=== PATIENT | male | born 1965 | race Caucasian/White ===

== ENCOUNTER 2018-02-12 08:48 | Observation (INO) ==
[2018-02-12] MEDS ORDERED: Ipratropium/Albuterol Neb 3 ML IH ONE (08:59)
[2018-02-12] MEDS ORDERED: methylPREDNISolone 125 MG/2 ML VIAL IVP ONE (08:59)
--- NOTE | 2018-02-12 09:02 | Emergency Department Note ---
Disposition Clinical Impression: Acute exacerbation of chronic obstructive airways disease Pneumonia Qualifiers: Pneumonia type: due to unspecified organism Laterality: unspecified laterality Lung location: unspecified part of lung Qualified Code(s): J18.9 - Pneumonia, unspecified organism Disposition: Admitted As Inpatient Condition: Good General Adult HPI - General Chief complaint: ED Shortness of Breath/Dyspnea Stated complaint: Swollen all over/NILTON Time Seen by Provider: 02/12/18 08:55 Source: patient Limitations: no limitations Nursing Notes Reviewed: Yes Vital Signs Reviewed: Yes - History of Present Illness HPI Narrative: 52-year-old male presents emergency department with concern for shortness of breath, cough, sputum production, swelling all over. Patient states that he has extensive history of COPD. Reports that he was recently started on antibiotics as well as steroids. Reports that he has not gotten any better. He source of breath was to the point where they have prescribed him nebulized treatments at home with a breathing machine. He is not currently on oxygen at home. Patient denies any fevers. He denies any chest pain, pressure, tightness. Pain Scale: 8 - Related Data Home Medications Medication Instructions Recorded Confirmed Albuterol Sulfate [Ventolin Hfa] 2 puff IH Q4H PRN 02/12/18 02/12/18 Buprenorphine HCl [Subutex] 2 mg SL 02/12/18 Buprenorphine HCl [Subutex] 2 mg SL 02/12/18 Ipratropium/Albuterol Sulfate 1 vial IH Q4H PRN 02/12/18 02/12/18 [Iprat-Albut 0.5-3(2.5) mg/3 ml] levoFLOXacin [Levofloxacin] 750 mg PO DAILY 02/12/18 02/12/18 predniSONE [PredniSONE] 40 mg PO DAILY 02/12/18 02/12/18 Allergies Allergy/AdvReac Type Severity Reaction Status Date / Time No Known Allergies Allergy Verified 02/10/18 13:05 All systems ED: reviewed and negative except as stated. Review of Systems: As Per HPI Constitutional: Denies: fever Cardiovascular: Denies: chest pain Respiratory: Reports: cough, dyspnea, wheezes, sputum production Gastrointestinal: Denies: abdominal pain, nausea, vomiting Genitourinary: Denies: urgency, dysuria Musculoskeletal: Denies: back pain Past Medical History - Past Medical History Medical history: Reports: COPD Surgical history: Reports: no surgical history Psychiatric history: Reports: no psych history - Social History Smoking Status: Current every day smoker Smokeless Tobacco Status: No Alcohol use: Reports: occasionally Drug use: Reports: none Physical Exam - General Limitations: no limitations General appearance: alert - Head Head exam: normocephalic - Eye Eye exam: Present: EOMI - ENT ENT exam: normal oropharynx - Neck Neck exam: Present: trachea midline - Chest Chest inspection: Present: symmetric chest wall rise - Respiratory Respiratory exam: Present: respiratory distress, wheezes, accessory muscle use - Cardiovascular Cardiovascular exam: Present: normal rhythm, tachycardia, normal heart sounds - Abdominal Exam Abdominal exam: Present: soft, Non-Tender. Absent: distention, guarding, rebound, rigidity - Extremities Exam Extremities exam: Present: normal capillary refill. Absent: pedal edema - Back Exam Back exam: Present: full ROM - Neurological Exam Neurological exam: Present: alert, oriented X3 - Psychiatric Psychiatric exam: Present: normal affect, normal mood - Skin Skin exam: Present: warm, dry, intact, normal color. Absent: rash Course Vital Signs Temperature 98.2 F 02/12/18 08:51 Pulse Rate 101 02/12/18 08:51 Respiratory Rate 26 02/12/18 08:51 Blood Pressure 204/114 02/12/18 08:51 O2 Sat by Pulse Oximetry 92 02/12/18 08:51 Temperature 98.2 F 02/12/18 08:59 Pulse Rate 92 02/12/18 09:38 Respiratory Rate 15 02/12/18 10:25 Blood Pressure 155/103 02/12/18 10:25 O2 Sat by Pulse Oximetry 95 02/12/18 10:25 Oxygen Delivery Oxygen Delivery Room Air Medical Decision Making - [facility] Narrative Medical decision making narrative: 52-year-old help as his emergency department with concern for shortness of breath, cough, sputum production the setting of COPD. On physical exam, he had wheezes and appear to be in mild respiratory distress. Patient not requiring oxygen. We did provide breathing treatments as well as steroids. Chest x-ray did not reveal any evidence of acute cardiopulmonary abnormality per radiology. EKG did not reveal any ischemic changes. Troponin was negative. We obtained a d-dimer as patient was low risk for pulmonary embolus and this was within normal limits. Patient improved significantly after administration breathing treatments. There is concern for pneumonia at this time as patient does have a leukocytosis and is short of breath, sputum production. We did provide Levaquin IV. Patient was offered admission as he has failed outpatient management for COPD exacerbation. He agreed to stay. Patient admitted to Dr. South. He requested that we obtain CT of chest without contrast as he was concern for possibility of right lower lobe pneumonia after reviewing the chest x-ray himself. I did order this. CT of chest reveals concern for an infectious process in the lower lobes and right middle lobe. Patient hemodynamically stable at time of admission. Chest X-Ray 02/12/18 08:59 IMPRESSION: 1. Mild bibasilar opacities, favored to represent atelectasis. 2. Emphysematous changes. D/ / Steve Mirza MD / Steve Mirza MD Interpreting Provider: Steve Mirza MD Chest CT 02/12/18 10:30 IMPRESSION: Small peribronchovascular ground-glass nodular changes seen within the lower lobes and right middle lobe, concerning for an atypical multilobar infectious process. This is superimposed on chronic moderate appearing emphysema. Recommend repeat CT scan of the chest with in 2-3 months to document resolution, and allow for better evaluation of an inflammatory versus non inflammatory type pulmonary nodule. Benign left adrenal adenoma with macroscopic fat, for which no further follow-up is felt necessary. No spiculated lung mass or lymphadenopathy is identified in the chest. D/ / Lito Whitmore MD / Lito Whitmore MD Interpreting Provider: Lito Whitmore MD - Lab Data Result diagrams: 02/12/18 09:10 02/12/18 09:10 Lab Results 02/12/18 02/12/18 02/12/18 Range/Units 09:10 09:10 09:10 WBC 14.4 H (4.3-11.1) K/mcL RBC 5.07 (4.19-5.50) M/mcL Hgb 15.2 (12.9-16.9) g/dL Hct 46.5 (37.5-50.1) % MCV 91.7 (83.0-100.0) fL MCH 30.0 (28.0-33.3) pg MCHC 32.7 (31.6-35.5) g/dL RDW 13.5 (11.5-14.5) % Plt Count 252 (140-400) K/mcL MPV 10.5 (9.4-12.4) fL Immature Gran % 0.7 (0-4) % Seg Neutrophils % 57.3 % Lymphocytes % 31.9 % Monocytes % 8.4 % Eosinophils % 1.5 % Basophils % 0.2 % Neutrophils # 8.3 (1.6-8.9) K/mcL Lymphocytes # 4.6 (0.6-4.6) K/mcL Monocytes # 1.2 (0.0-1.3) K/mcL Eosinophils # 0.2 (0.0-0.6) K/mcL Basophils # 0.0 (0.0-0.2) K/mcL D-Dimer (0-500) ng/mLFEU Sodium 138 (136-145) mEq/L Potassium 3.7 (3.5-5.1) mEq/L Chloride 100 (98-107) mEq/L Carbon Dioxide 31 H (23-29) mEq/L BUN 15 (6-20) mg/dL Creatinine 0.77 (0.70-1.30) mg/dL Est GFR ( Amer) > 60 (> 60) Est GFR (Non-Af Amer) > 60 (> 60) BUN/Creatinine Ratio 19 (6-26) Glucose 100 (70-105) mg/dL Calculated Osmolality 287 (280-300) Calcium 9.2 (8.6-10.3) mg/dL Troponin I < 0.03 (< 0.04) ng/mL B-Natriuretic Peptide 37 (Less than 100) pg/mL 02/12/18 Range/Units 09:10 WBC (4.3-11.1) K/mcL RBC (4.19-5.50) M/mcL Hgb (12.9-16.9) g/dL Hct (37.5-50.1) % MCV (83.0-100.0) fL MCH (28.0-33.3) pg MCHC (31.6-35.5) g/dL RDW (11.5-14.5) % Plt Count (140-400) K/mcL MPV (9.4-12.4) fL Immature Gran % (0-4) % Seg Neutrophils % % Lymphocytes % % Monocytes % % Eosinophils % % Basophils % % Neutrophils # (1.6-8.9) K/mcL Lymphocytes # (0.6-4.6) K/mcL Monocytes # (0.0-1.3) K/mcL Eosinophils # (0.0-0.6) K/mcL Basophils # (0.0-0.2) K/mcL D-Dimer 432 (0-500) ng/mLFEU Sodium (136-145) mEq/L Potassium (3.5-5.1) mEq/L Chloride (98-107) mEq/L Carbon Dioxide (23-29) mEq/L BUN (6-20) mg/dL Creatinine (0.70-1.30) mg/dL Est GFR ( Amer) (> 60) Est GFR (Non-Af Amer) (> 60) BUN/Creatinine Ratio (6-26) Glucose (70-105) mg/dL Calculated Osmolality (280-300) Calcium (8.6-10.3) mg/dL Troponin I (< 0.04) ng/mL B-Natriuretic Peptide (Less than 100) pg/mL - EKG Data EKG #1 EKG attestation: Yes I reviewed and interpreted this EKG. EKG results narrative: 9:05 Heart rate 85 bpm, TN interval 190 ms, QRS duration 96% segs, QT 363 ms, QTC 432 ms, normal axis. Sinus rhythm ventricular rate of 85 beats for minute. There is evidence of shortened TN interval. No ischemic ST changes noted on this EKG.
--- NOTE | 2018-02-12 09:09 | Emergency Department Note ---
Disposition Clinical Impression: Acute exacerbation of chronic obstructive airways disease, Pneumonia Disposition: Admitted As Inpatient Condition: Good General Adult HPI - General Chief complaint: ED Shortness of Breath/Dyspnea Stated complaint: Swollen all over/NILTON Time Seen by Provider: 02/12/18 08:55 Source: patient Limitations: no limitations - History of Present Illness Pain Scale: 8 - Related Data Home Medications Medication Instructions Recorded Confirmed RX: Buprenorphine HCl [Subutex] 4 mg SL QAM 02/12/18 02/13/18 RX: Buprenorphine HCl [Subutex] 6 mg SL HS 02/12/18 02/13/18 Previous Rx's Medication Instructions Recorded Budesonide/Formoterol 80/4.5 2 puff IH BID #1 hfa.aer.ad 02/13/18 [Symbicort 80/4.5] RX: Albuterol Sulfate [Ventolin 2 puff IH Q4H PRN #1 hfa.aer.ad 02/13/18 Hfa] RX: Ipratropium/Albuterol Sulfate 1 vial IH Q4H PRN #120 ampul.neb 02/13/18 [Iprat-Albut 0.5-3(2.5) mg/3 ml] RX: Nicotine Patch [Nicoderm] 21 mg TD DAILY #30 patch.td24 02/13/18 RX: levoFLOXacin [Levofloxacin] 750 mg PO DAILY #4 tablet 02/13/18 RX: predniSONE [PredniSONE] 40 mg PO DAILY #10 tablet 02/13/18 Allergies Allergy/AdvReac Type Severity Reaction Status Date / Time No Known Allergies Allergy Verified 02/10/18 13:05 Past Medical History - Past Medical History Medical history: Reports: COPD Surgical history: Reports: no surgical history Psychiatric history: Reports: no psych history - Social History Smoking Status: Current every day smoker Smokeless Tobacco Status: No Alcohol use: Reports: occasionally Drug use: Reports: none Physical Exam - General Limitations: no limitations General appearance: alert Course Vital Signs Temperature 98.2 F 02/12/18 08:51 Pulse Rate 101 02/12/18 08:51 Respiratory Rate 26 02/12/18 08:51 Blood Pressure 204/114 02/12/18 08:51 O2 Sat by Pulse Oximetry 92 02/12/18 08:51 Temperature 97.7 F 02/13/18 07:54 Pulse Rate 104 02/13/18 07:54 Respiratory Rate 15 02/13/18 07:54 Blood Pressure 148/95 02/13/18 07:54 O2 Sat by Pulse Oximetry 92 02/13/18 10:44 Oxygen Delivery Oxygen Delivery Room Air Medical Decision Making - Lab Data Result diagrams: 02/13/18 03:45 02/13/18 03:45 Lab Results 02/12/18 02/12/18 02/12/18 Range/Units 09:10 09:10 09:10 WBC 14.4 H (4.3-11.1) K/mcL RBC 5.07 (4.19-5.50) M/mcL Hgb 15.2 (12.9-16.9) g/dL Hct 46.5 (37.5-50.1) % MCV 91.7 (83.0-100.0) fL MCH 30.0 (28.0-33.3) pg MCHC 32.7 (31.6-35.5) g/dL RDW 13.5 (11.5-14.5) % Plt Count 252 (140-400) K/mcL MPV 10.5 (9.4-12.4) fL Immature Gran % 0.7 (0-4) % Seg Neutrophils % 57.3 % Lymphocytes % 31.9 % Monocytes % 8.4 % Eosinophils % 1.5 % Basophils % 0.2 % Neutrophils # 8.3 (1.6-8.9) K/mcL Lymphocytes # 4.6 (0.6-4.6) K/mcL Monocytes # 1.2 (0.0-1.3) K/mcL Eosinophils # 0.2 (0.0-0.6) K/mcL Basophils # 0.0 (0.0-0.2) K/mcL D-Dimer (0-500) ng/mLFEU Sodium 138 (136-145) mEq/L Potassium 3.7 (3.5-5.1) mEq/L Chloride 100 (98-107) mEq/L Carbon Dioxide 31 H (23-29) mEq/L BUN 15 (6-20) mg/dL Creatinine 0.77 (0.70-1.30) mg/dL Est GFR ( Amer) > 60 (> 60) Est GFR (Non-Af Amer) > 60 (> 60) BUN/Creatinine Ratio 19 (6-26) Glucose 100 (70-105) mg/dL Calculated Osmolality 287 (280-300) Calcium 9.2 (8.6-10.3) mg/dL Troponin I < 0.03 (< 0.04) ng/mL B-Natriuretic Peptide 37 (Less than 100) pg/mL 02/12/18 Range/Units 09:10 WBC (4.3-11.1) K/mcL RBC (4.19-5.50) M/mcL Hgb (12.9-16.9) g/dL Hct (37.5-50.1) % MCV (83.0-100.0) fL MCH (28.0-33.3) pg MCHC (31.6-35.5) g/dL RDW (11.5-14.5) % Plt Count (140-400) K/mcL MPV (9.4-12.4) fL Immature Gran % (0-4) % Seg Neutrophils % % Lymphocytes % % Monocytes % % Eosinophils % % Basophils % % Neutrophils # (1.6-8.9) K/mcL Lymphocytes # (0.6-4.6) K/mcL Monocytes # (0.0-1.3) K/mcL Eosinophils # (0.0-0.6) K/mcL Basophils # (0.0-0.2) K/mcL D-Dimer 432 (0-500) ng/mLFEU Sodium (136-145) mEq/L Potassium (3.5-5.1) mEq/L Chloride (98-107) mEq/L Carbon Dioxide (23-29) mEq/L BUN (6-20) mg/dL Creatinine (0.70-1.30) mg/dL Est GFR ( Amer) (> 60) Est GFR (Non-Af Amer) (> 60) BUN/Creatinine Ratio (6-26) Glucose (70-105) mg/dL Calculated Osmolality (280-300) Calcium (8.6-10.3) mg/dL Troponin I (< 0.04) ng/mL B-Natriuretic Peptide (Less than 100) pg/mL Attestation Statement - Attestation Attestation: I examined this patient and my medical decision-making was reviewed with the Resident Physician. I agree with the documented findings, disposition and treatment plan as described except to the extent set forth below. [id number] time provided Patient arrives complaining of dyspnea. He has a known history of non-oxygen dependent COPD. Bronchospastic on exam. Markedly hypertensive.
[2018-02-12] MEDS: Nitroglycerin 0.4 MG TAB.SUBL SL PRN ×2 (09:24→09:38)
[2018-02-12 09:33] LABS: Basophils % 0.2 %; Eosinophils # 0.2 K/mcL (0.0-0.6); Eosinophils % 1.5 %; Hematocrit 46.5 % (37.5-50.1); Hemoglobin 15.2 g/dL (12.9-16.9); Immature Granulocytes % 0.7 % (0-4); Lymphocytes # 4.6 K/mcL (0.6-4.6); Lymphocytes % 31.9 %; Mean Corpuscular HGB Conc 32.7 g/dL (31.6-35.5); Mean Corpuscular Volume 91.7 fL (83.0-100.0); Mean Platelet Volume 10.5 fL (9.4-12.4); Monocytes # 1.2 K/mcL (0.0-1.3); Monocytes % 8.4 %; Neutrophils # 8.3 K/mcL (1.6-8.9); Platelet Count 252 K/mcL (140-400); Red Blood Count 5.07 M/mcL (4.19-5.50); Red Cell Distribution Width 13.5 % (11.5-14.5); Segmented Neutrophils % 57.3 %
[2018-02-12] MEDS ORDERED: Albuterol 2.5 MG/3 ML NEBULIZER IH ONE (09:41)
[2018-02-12] MEDS ORDERED: Levalbuterol Neb 1.25 MG/3 ML IH STA (09:50)
[2018-02-12 09:51] LABS: BUN/Creatinine Ratio 19 (6-26); Blood Urea Nitrogen 15 mg/dL (6-20); Calcium 9.2 mg/dL (8.6-10.3); Carbon Dioxide 31 mEq/L (23-29); Chloride 100 mEq/L (98-107); Glucose 100 mg/dL (70-105); Osmolality,Calculated 287 (280-300); Potassium 3.7 mEq/L (3.5-5.1); Sodium 138 mEq/L (136-145); Troponin I < 0.03 ng/mL (< 0.04); eGFR For Non-African Americans > 60 (> 60)
--- NOTE | 2018-02-12 10:03 | Electrocardiograph Report ---
[facility] Test Date: 2018-02-12 Pat Name: Phil Conti Department: [id number] Room: Gender: M [place]: : 1965 Requested By: Reuben Levine Order Number: [id number] Reading MD: Brendon Rogers Measurements Intervals [place] Rate: 85 P: 85 [place]: 109 QRS: 90 QRSD: 96 T: 60 QT: 363 QTc: 432 Interpretive Statements Sinus rhythm Atrial premature complex Consider right atrial enlargement Electronically Signed On 02-12-2018 10:01:34 EST by Brendon Rogers
[2018-02-12] MEDS ORDERED: Levofloxacin 750 MG/150 ML 750 MG/150 ML BAG IVPB ONE (10:09)
--- NOTE | 2018-02-12 10:44 | Internal Med History&Physical ---
Date of Encounter: 02/12/18 Time of Encounter: 10:39 Internal Medicine - H&P: HPI Chief complaint: sob and wheezing Admitted From: Emergency Dept Plans for Post Hospital Care: Home History of present illness: Mr. Conti is a 52 year old male Patient with history of COPD, smoking history, hypertension patient was seen at Urgent Care , February 10 with COPD exacerbation was sent home on some outpatient therapy patient continue not to get better and came back to the emergency room also have cough productive of thick yellow sputum no fever or chills . Patient presented emergency room here given some breathing treatment but still wheezing and admitted for COPD exacerbation chest x-ray does not show pneumonia but some basilar atelectasis cannot rule out pneumonia will obtain CT for further evaluation and to make sure does not have pneumonia we will treat him with Levaquin IV in the meantime and steroids and bronchodilator. Past Med Surg Social Fam HX - Past Medical History Medical history: COPD Psychiatric history: no psych history - Past Surgical History Surgical History: no surgical history Additional surgical history: hernia surgery - Social History Smoking Status: Current every day smoker Smokeless Tobacco Status: No Alcohol use: occasionally Drug use: none Internal Medicine - H&P: Meds Allergy/AdvReac Type Severity Reaction Status Date / Time No Known Allergies Allergy Verified 02/10/18 13:05 All Systems PM: A 10-system review of systems was performed and is negative for pertinent findings except as documented above in the HPI. - Constitutional Vitals: Temp Pulse Resp BP Pulse Ox 98.2 F 92 15 155/103 95 02/12/18 08:59 02/12/18 09:38 02/12/18 10:25 02/12/18 10:25 02/12/18 10:25 General appearance: Present: mild distress Exam: done - Eye Eye exam: Present: PERRL, conjuntiva pink, sclera anicteric Pupils: Present: PERRL - Neck Neck exam general surgery: Present: supple, trachea midline. Absent: lymphadenopathy - Respiratory Respiratory exam: Present: decreased breath sounds, wheezes - Cardiovascular Cardiovascular exam: Present: RRR, +S1, +S2. Absent: diastolic murmur, gallop, rubs, systolic murmur - GI/Abdominal GI/Abdominal exam: Present: normal bowel sounds, soft, no peritoneal signs. Absent: distended, tenderness - Extremities Exam Extremities exam: Present: warm, radial pulses palpable and symmetrical. Absent: calf tenderness, cyanotic, pedal edema Internal Med - H&P Results - Labs CBC & Chem 7: 02/12/18 09:10 02/12/18 09:10 Labs: Short CBC 02/12/18 Range/Units 09:10 WBC 14.4 H (4.3-11.1) K/mcL Hgb 15.2 (12.9-16.9) g/dL Hct 46.5 (37.5-50.1) % Plt Count 252 (140-400) K/mcL Neutrophils # 8.3 (1.6-8.9) K/mcL BMP 02/12/18 09:10 Sodium 138 Potassium 3.7 Chloride 100 Carbon Dioxide 31 H BUN 15 Creatinine 0.77 Glucose 100 Calcium 9.2 Cardiac Enzymes 02/12/18 Range/Units 09:10 Troponin I < 0.03 (< 0.04) ng/mL - Impressions ITS Impressions Chest X-Ray 02/12/18 08:59 IMPRESSION: 1. Mild bibasilar opacities, favored to represent atelectasis. 2. Emphysematous changes. D/ / Steve Mirza MD / Steve Mirza MD Interpreting Provider: Steve Mirza MD - Assessment and plan (1) HTN (hypertension) Current Visit: Yes Status: Chronic Assessment and plan: Chronic patient not blood pressure medicine was started him on Norvasc 10 mg daily Qualifiers: Hypertension type: essential hypertension Qualified Code(s): I10 - Essential (primary) hypertension (2) Acute exacerbation of chronic obstructive airways disease Current Visit: No Status: Acute Assessment and plan: Acute exacerbation of COPD likely due to bronchitis CT of chest pending (3) Bronchitis Current Visit: No Status: Acute Assessment and plan: Has cough productive of thick sputum was started on Levaquin IV and await CT of the chest determine length of Levaquin treatment (4) Tobacco abuse Current Visit: No Status: Chronic - Time Spent With Patient Total time spent is greater than 50% in coordination of care (as documented) at patient's floor/unit and/or counseling patient:
[2018-02-12] MEDS ORDERED: Naloxone 0.4 MG/ML INJ IVP PRN (10:47)
[2018-02-12] MEDS ORDERED: Ipratropium/Albuterol Neb 3 ML IH PRN (10:50)
[2018-02-12] MEDS ORDERED: Ipratropium/Albuterol Neb 3 ML IH SCH (12:00)
[2018-02-12] MEDS: traMADol 50 MG TABLET PO PRN (13:40)
[2018-02-12] MEDS: Nicotine 21 MG PATCH.TD24 TD SCH (14:27)
[2018-02-12] MEDS ORDERED: *HR* LORazepam 2 MG/ML VIAL IVP ONE (15:08)
[2018-02-12] MEDS: MethylPREDNISolone 40 MG/ML VIAL IVP SCH ×2 (15:17→23:09)
[2018-02-12] MEDS: amLODIPine 5 MG TABLET PO SCH (15:17)
[2018-02-12] MEDS: Levalbuterol Neb 1.25 MG/3 ML IH SCH ×3 (16:27→23:54)
[2018-02-13] MEDS: Acetaminophen 325 MG TABLET PO PRN ×2 (03:11→08:43)
[2018-02-13] MEDS ORDERED: Psyllium 1 PACKET POWD.PACK PO ONE (03:59)
[2018-02-13 04:24] LABS: Hematocrit 46.6 % (37.5-50.1); Mean Corpuscular HGB Conc 32.2 g/dL (31.6-35.5); Mean Corpuscular Hemoglobin 29.3 pg (28.0-33.3); Mean Platelet Volume 10.5 fL (9.4-12.4); Platelet Count 242 K/mcL (140-400); Red Blood Count 5.12 M/mcL (4.19-5.50)
[2018-02-13] MEDS: Levalbuterol Neb 1.25 MG/3 ML IH SCH ×3 (04:34→11:24)
[2018-02-13 04:44] LABS: BUN/Creatinine Ratio 18 (6-26); Blood Urea Nitrogen 12 mg/dL (6-20); Calcium 9.2 mg/dL (8.6-10.3); Carbon Dioxide 30 mEq/L (23-29); Chloride 100 mEq/L (98-107); Chol/HDL Ratio 2.3 (0-4.9); Cholesterol 154 mg/dL (< 200); Glucose 128 mg/dL (70-105); HDL Cholesterol 66 mg/dL (40-59); LDL Cholesterol,Calculated 79 mg/dL (0-99); Magnesium 2.3 mg/dL (1.6-2.6); Osmolality,Calculated 285 (280-300); Sodium 137 mEq/L (136-145); Triglycerides 46 mg/dL (< 150); eGFR For Non-African Americans > 60 (> 60)
[2018-02-13] MEDS: traMADol 50 MG TABLET PO PRN (05:18)
[2018-02-13] MEDS ORDERED: *HR* Heparin 5,000 UNIT/ML VIAL SQ SCH (06:00)
[2018-02-13 08:01] VITALS: BP 148/95
[2018-02-13] MEDS: Nicotine 21 MG PATCH.TD24 TD SCH (08:31)
[2018-02-13] MEDS: MethylPREDNISolone 40 MG/ML VIAL IVP SCH (08:32)
[2018-02-13] MEDS: amLODIPine 5 MG TABLET PO SCH (08:32)
[2018-02-13] MEDS ORDERED: Levofloxacin 750 MG/150 ML 750 MG/150 ML BAG IVPB SCH (09:00)
[2018-02-13] MEDS ORDERED: Nicotine 21 MG PATCH.TD24 TD SCH (09:00)
--- NOTE | 2018-02-13 11:27 | Discharge Summary ---
- NOTES TO OUTPATIENT PROVIDER Notes to Outpatient Provider: Follow up with PCP in one week. Please quit smoking. Please use oxygen 2 lit with ambulation as well as at nighttime Orders not resulted at time of discharge: Pending orders 02/12/18 10:49 Culture,Sputum with Gram Stain [RM] Routine 02/12/18 11:12 Culture,Blood [BC] Routine Date of Encounter: 02/13/18 Time of Encounter: 11:20 - Discharge Diagnosis (1) Acute exacerbation of chronic obstructive airways disease Priority: Primary Status: Acute (2) Pneumonia Priority: Primary Status: Acute Qualifiers: Pneumonia type: due to unspecified organism Laterality: right Lung location: lower lobe of lung Qualified Code(s): J18.1 - Lobar pneumonia, unspecified organism (3) HTN (hypertension) Priority: Secondary Status: Chronic Qualifiers: Hypertension type: essential hypertension Qualified Code(s): I10 - Essential (primary) hypertension (4) Tobacco abuse Priority: Secondary Status: Chronic Hospital course: Mr. Conti is a 52 year old male with known history of COPD, smoking history and hypertension patient presented to the emergency room with cough productive of thick yellow sputum no fever or chills . He did c/o progressive worsening shortness of breath. Pt CT of chest showed some infiltrates in Rt middle and lower lobes. He was admitted in the hospital and placed him on IV steroids and empirical antibiotic Levaquin. It does look like he might have bacterial pneumonia. Patient states he is feeling better today. Still requiring oxygen with ambulation. We did ambulating pulse oxy which showed he does required 2 lit oxygen with ambulation and at night. So will arrange for home Oxygen. Also I started him on Symbicort. - Time Spent with Patient Total time spent providing and/or coordinating discharge services: - Discharge Medications Prescriptions: Albuterol Sulfate [Ventolin Hfa] 2 puff IH Q4H PRN #1 hfa.aer.ad PRN Reason: Dyspnea Budesonide/Formoterol 80/4.5 [Symbicort 80/4.5] 2 puff IH BID #1 hfa.aer.ad Ipratropium/Albuterol Sulfate [Iprat-Albut 0.5-3(2.5) mg/3 ml] 1 vial IH Q4H PRN #120 ampul.neb PRN Reason: Dyspnea levoFLOXacin [Levofloxacin] 750 mg PO DAILY #4 tablet Nicotine Patch [Nicoderm] 21 mg TD DAILY #30 patch.td24 predniSONE [PredniSONE] 40 mg PO DAILY #10 tablet Home Medications: Buprenorphine HCl [Subutex] 2 mg SL 02/12/18 [History] Buprenorphine HCl [Subutex] 2 mg SL 02/12/18 [History] Albuterol Sulfate [Ventolin Hfa] 2 puff IH Q4H PRN #1 hfa.aer.ad 02/13/18 [Rx] Budesonide/Formoterol 80/4.5 [Symbicort 80/4.5] 2 puff IH BID #1 hfa.aer.ad 02/13/18 [Rx] Ipratropium/Albuterol Sulfate [Iprat-Albut 0.5-3(2.5) mg/3 ml] 1 vial IH Q4H PRN #120 ampul.neb 02/13/18 [Rx] Nicotine Patch [Nicoderm] 21 mg TD DAILY #30 patch.td24 02/13/18 [Rx] levoFLOXacin [Levofloxacin] 750 mg PO DAILY #4 tablet 02/13/18 [Rx] predniSONE [PredniSONE] 40 mg PO DAILY #10 tablet 02/13/18 [Rx] Allergies/Adverse Reactions: Allergy/AdvReac Type Severity Reaction Status Date / Time No Known Allergies Allergy Verified 02/10/18 13:05 Date of admission: 02/12/18 10:18 Primary care physician: PCP NONE Consults: 02/13/18 10:44 Consult to [facility] Technician [CONS] Routine Reason for SW Consult: patient qualified for oxygen, he may also need a nebulizer at home. - Constitutional Vitals: Temp Pulse Resp BP Pulse Ox 97.7 F 104 15 148/95 92 02/13/18 07:54 02/13/18 07:54 02/13/18 07:54 02/13/18 07:54 02/13/18 10:44 General appearance: Present: cooperative, A&O X 3, no acute distress, answers questions appropriately Exam: Gen: Alert, awake, Oriented to time,place and person Chest: Diminished breath sounds B/L, mild wheezing, No crackles, No rales Heart: S1S2+ RRR No murmurs Abd: Soft, NT, BS +, No organomegaly Ext: No edema, pulses are palpable, No calf tenderness Neuro : Benign findings Skin: No rash. - Patient Status Disposition: Home, Self-Care Condition: Good Overall status at discharge: patient is back to baseline - Discharge Instructions Follow Up With: NONE,PCP [Primary Care Provider] - Racquel Alicea [Resident] - 02/19/18 2:00 pm - Diet and Activity Activity: increase activity as tolerated, wear oxygen at night Diet: low salt diet
== END 2018-02-13 13:36 | disposition home or self-care (01) ==
LOC: 3BNU 08:48 → EMEROOARM 08:48 → SUATTDRO 10:18 → 3BNU 10:48
PROVIDERS: ADMIT Internal Medicine Cardiovascular Disease; ATTEND Family Medicine